=== PATIENT | male | born 1970 | race Caucasian/White ===

== ENCOUNTER 2018-09-14 07:54 | Emergency (ER) | payer OTHER ==
[~2018-09-14] VITALS: Ht 167.6 cm; Wt 74.0 kg
[~2018-09-14 07:54] MED LIST: UNK HTN MED
[2018-09-14 07:57] VITALS: Ht 167.6 cm; Wt 74.0 kg
[2018-09-14] MEDS ORDERED: SOD CHLORIDE 0.9% 1,000 ML IV STA ×2 (08:29→11:21)
[2018-09-14] MEDS ORDERED: ONDANSETRON 4 MG INJ IV STA (08:29)
[2018-09-14] MEDS ORDERED: HYDROmorphONE 1 MG/ML SYG IV STA (08:29)
[2018-09-14] MEDS ORDERED: IOHEXOL 300MG/ML 150 ML BTL ONE (09:43)
[2018-09-14] MEDS ORDERED: SOD CHLORIDE 0.9% 100 ML ONE (09:43)
[2018-09-14] MEDS ORDERED: LOSA50TA14 PO (10:28)
[2018-09-14] MEDS ORDERED: AMLO-147 PO (10:28)
[2018-09-14] MEDS ORDERED: ASPI-817 PO (10:28)
[2018-09-14] MEDS ORDERED: KETOROLAC 30 MG INJ IV STA (11:21)
[2018-09-14] MEDS ORDERED: METOCLOPRAMIDE 10 MG INJ IV ONE (11:30)
[2018-09-14] MEDS ORDERED: IBUP-1542 PO (12:31)
[2018-09-14] MEDS ORDERED: ONDA4TAB14 PO (12:31)
--- NOTE | 2018-09-14 12:53 | ERD ---
ER Documentation Chief Complaint Chief Complaint pt is bib family with c/o abd pain and vomiting all night, HPI This is a 47-year-old male who is prediabetic and history of hypertension. He was brought into the emergency department by his after he developed a sudden onset of abdominal pain and cramping. The patient indicated this occurred roughly 12 hours prior to arrival. He stated that he had eaten dinner roughly 20 minutes later he felt intense cramping and had multiple episodes of nonbloody nonbilious emesis. He states he is never had any similar symptoms in the past. He did have loose stools. He said no fevers or shaking or chills. He states is attempted to drink fluids but subsequently vomits up any oral i ntake. He said no recent travel. He has no shortness of breath at rest or exertion. He denies any chest pain or pressure. He states that the abdominal pain is a cramping-like sensation that occurs just prior to emesis ROS All systems reviewed and are negative except as per history of present illness. Medications Home Meds Active Scripts Ibuprofen* (Motrin*) 600 Mg Tab, 600 MG PO Q8, #20 TAB Prov:NADEEM CHACON MD 09/14/18 Ondansetron (Ondansetron Odt) 4 Mg Tab.rapdis, 4 MG PO Q6H PRN for NAUSEA AND/OR VOMITING, #20 TAB Prov:NADEEM CHACON MD 09/14/18 Reported Medications Losartan Potassium* (Losartan Potassium*) 50 Mg Tablet, 50 MG PO DAILY, TAB 09/14/18 Aspirin* (Aspirin* EC) 81 Mg Tablet.dr, 81 MG PO DAILY, TAB 09/14/18 Amlodipine Besylate* (Amlodipine Besylate*) 10 Mg Tablet, 10 MG PO DAILY, #30 TAB 09/14/18 Discontinued Reported Medications [Unk Htn Med] No Conflict Check 08/29/11 Allergies Allergies: Coded Allergies: No Known Drug Allergies (Verified Allergy, Unknown, 09/14/18) PMhx/Soc History of Surgery: No Anesthesia Reaction: No Hx Neurological Disorder: No Hx Respiratory Disorders: No Hx Cardiac Disorders: Yes (HTN) Hx Psychiatric Problems: No Hx Miscellaneous Medical Probl: No Hx Alcohol Use: No Hx Substance Use: No Hx Tobacco Use: No Smoking Status: Never smoker Physical Exam Vitals Vital Signs Date Temp Pulse Resp B/P (MAP) Pulse Ox O2 O2 Flow FiO2 Time Delivery Rate 09/14/18 62 18 116/76 99 Nasal 2.0 10:00 (89) Cannula 09/14/18 97.2 70 16 133/80 97 07:57 (97) Physical Exam Constitutional:Well-developed. Well-nourished. HEENT:Normocephalic. Atraumatic.Pupils were equal round reactive to light. Very dry mucous membranes.No tonsillar exudates. Neck: No nuchal rigidity. No lymphadenopathy. No posterior cervical spine ten derness or step-offs. Respiratory: Not using accessory muscles of respiration.Lungs were clear to au scultation bilaterally. No rhonchi. No rales. No wheezing. Cardiovascular: Regular rate regular rhythm.No murmurs. No rubs were appreciated.S1, S2 normal. Distal pulses are palpable 2+ bilaterally. GI: Abdomen was soft. Epigastric tenderness and left lower quadrant tenderness. Non Distended. No pulsatile abdominal masses or bruits. No rebound. No guarding. Bowel sounds were present and normal. Muscle skeletal: Full range of motion of both the upper and lower extremities bilaterally.Normal muscle tone.No assymetrical calf tenderness or swelling. Skin: No petechia, no purpura. No lesions on the palms or the soles of the feet. No maculopapular rash. NEURO: Patient was alert, awake, orientated x3.No facial droop. Gait observed and normal with no ataxia.Speech had regular rate and rhythm. No focal neurological deficits. Result Diagram: 09/14/18 0839 09/14/18 0839 Results 24 hrs Laboratory Tests Test 09/14/18 08:39 White Blood Count 15.2 10^3/ul Red Blood Count 5.20 10^6/ul Hemoglobin 14.1 g/dl Hematocrit 42.8 % Mean Corpuscular Volume 82.3 fl Mean Corpuscular Hemoglobin 27.1 pg Mean Corpuscular Hemoglobin Concent 32.9 g/dl Red Cell Distribution Width 12.3 % Platelet Count 347 10^3/UL Mean Platelet Volume 10.4 fl Immature Granulocytes % 0.600 % Neutrophils % 84.4 % Lymphocytes % 10.8 % Monocytes % 3.2 % Eosinophils % 0.7 % Basophils % 0.3 % Nucleated Red Blood Cells % 0.0 /100WBC Immature Granulocytes # 0.090 10^3/ul Neutrophils # 12.9 10^3/ul Lymphocytes # 1.6 10^3/ul Monocytes # 0.5 10^3/ul Eosinophils # 0.1 10^3/ul Basophils # 0.0 10^3/ul Nucleated Red Blood Cells # 0.0 10^3/ul Prothrombin Time 11.7 Sec Prothrombin Time Ratio 0.9 INR International Normalized Ratio 0.85 Activated Partial Thromboplast Time 23.7 Sec Sodium Level 141 mmol/L Potassium Level 3.5 mmol/L Chloride Level 100 mmol/L Carbon Dioxide Level 28 mmol/L Anion Gap 13 Blood Urea Nitrogen 16 mg/dl Creatinine 1.01 mg/dl Est Glomerular Filtrat Rate mL/min > 60 mL/min Glucose Level 157 mg/dl Calcium Level 9.9 mg/dl Total Bilirubin 1.0 mg/dl Direct Bilirubin 0.00 mg/dl Indirect Bilirubin 1.0 mg/dl Aspartate Amino Transf (AST/SGOT) 25 IU/L Alanine Aminotransferase (ALT/SGPT) 19 IU/L Alkaline Phosphatase 105 IU/L Troponin I < 0.012 ng/ml B-Type Natriuretic Peptide 19 PG/ML Total Protein 8.7 g/dl Albumin 5.0 g/dl Globulin 3.70 g/dl Albumin/Globulin Ratio 1.35 Amylase Level 110 U/L Lipase 150 U/L Current Medications Medications Dose Sig/Luan Start Time Status Last (Trade) Ordered Route PRN Stop Time Admin Dose Reason Admin Sodium 1,000 ml @ Q1H STAT 09/14/18 DC 09/14/18 Chloride 1,000 mls/hr IV 08:29 08:37 09/14/18 09:28 1 mg ONCE STAT 09/14/18 DC 09/14/18 Hydromorphone IV 08:29 08:35 HCl 09/14/18 08:32 (Dilaudid) Ondansetron 4 mg ONCE STAT 09/14/18 DC 09/14/18 HCl (Zofran IV 08:29 08:35 Inj) 09/14/18 08:32 Iohexol 150 ml STK-MED 09/14/18 DC 09/14/18 (Omnipaque ONCE .ROUTE 09:43 10:01 300mg/ ml) 09/14/18 09:44 Sodium 100 ml @ ud STK-MED 09/14/18 DC 09/14/18 Chloride ONCE .ROUTE 09:43 10:01 09/14/18 09:44 10 mg ONCE ONCE 09/14/18 DC 09/14/18 Metoclopramid IV 11:30 11:29 e HCl 09/14/18 11:31 (Reglan) Ketorolac 30 mg ONCE STAT 09/14/18 DC 09/14/18 Tromethamine IV 11:21 11:29 (Toradol) 09/14/18 11:26 Sodium 1,000 ml @ Q1H STAT 09/14/18 DC 09/14/18 Chloride 1,000 mls/hr IV 11:21 11:29 09/14/18 12:20 Procedures/MDM This patient presented to the emergency department with abdominal pain and was seen and evaluated by myself. My differential diagnosis included but was not limited to abdominal aortic aneurysm, appendicitis, pancreatitis, perforated peptic ulcer, perforated viscus, Boerhaaves syndrome or visceral pain such as diverticulitis, DKA, esophagitis, hepatitis or bowel obstruction. The patient was placed on a museum tour guide, continuous pulse oximetry, and IV access was established by nursing staff. The patient appear to be in a significant amount of discomfort and immediately was given intravenous Dilaudid and Zofran. I obtained a 12-lead EKG tracing to rule out for atypical myocardial ischemia. 12 Lead EKG tracing ordered and reviewed by myself showed: Normal sinus rhythm of 74 bpm and no arrhythmia. AL interval normal. QRS duration normal. No ST segment elevation No ST segment depression. No changes consistent with acute ischemia. I obtained a CT scan of the patient's abdomen which was reviewed by myself the radiologist and indicated the following: No evidence of urolithiasis, obstructive uropathy, diverticulitis or appendicitis. Thickened wall loops small bowel left upper quadrant with stranding of s urrounding fat but no mass or obstruction. Question focal enteritis. Consider small-bowel follow-through for further evaluation. Right pelvic ascites. Right-sided scrotal hydrocele. Left renal cyst. No further workup required. Coarse interstitial markings dependent lower lobes. Question chronic aspiration. Regarding the interstitial markings of the dependent lobes I did not feel that the patient had experienced aspiration. He had no shortness of breath. He has not had a productive or nonproductive cough and was not hypoxic. The patient did have leukocytosis with a left shift however I explained to the patient I did feel this could be an acute systemic reaction secondary to pain and vomiting. I explained to the patient the findings on the physical exam that could suggest a focal enteritis. The patient was offered a trial of observation to the hospital but stated he would prefer to be discharged and return if his symptoms worsen or follow-up with his primary care physician. He was given antacids IV fluids Zofran and his symptoms had significantly improved. Observation Note: Time: 5 hours Family Hx: No Hypertension Evaluation: Multiple exams showed improving symptoms and no evidence of a small bowel obstruction as the patient was now able to tolerate oral intake. He his symptoms had significantly improved. The patient was discharged home in fair condition. They were instructed to return to the emergency department at any time if there was any worsening of their condition. The patient stated they would follow up with their PCP in the next 24-48 hours to initiate a suitable medication regimen under the care of their PCP as well as to allow their PCP to monitor any drug reactions. The patient was discharged home with prescriptions after they gave informed consent to the new medication. They were also fully informed by myself on the adverse effects and adverse drug interactions in order to provide adequate safeguards to prevent possible adverse reactions to medi cations. Departure Diagnosis: Primary Impression: Enteritis Additional Impression: Vomiting Vomiting type: unspecified Vomiting Intractability: non-intractable Nausea presence: with nausea Qualified Codes: R11.2 - Nausea with vomiting, unspecified Condition: Fair Patient Instructions: Vomiting (6Y-Adult) NADEEM CHACON MD Sep 14, 2018 12:53
[2018-09-14 13:00] VITALS: BP 103/73; PULSE 68; RESP 16
== END 2018-09-14 13:00 | disposition home or self-care (01) ==
LOC: E/R 07:54
DX: K52.9 Noninfective gastroenteritis and colitis, unspecified (principal); I10 Essential (primary) hypertension; Z79.82 Long term (current) use of aspirin
CPT/HCPCS: 71045; 74177; 80053; 81003; 82150; 83690; 83880; 84484; 85025; 85610; 85730; 87040; 93005; 96374; 96375; J1170; J1885; J2405; J2765; J7030; Q9967; Z7502; Z7610